=== PATIENT | female | born 1980 | race Caucasian/White ===

== ENCOUNTER 2021-12-31 08:58 | Inpatient (IN) | payer OTHER ==
[2021-12-28 14:55] LABS: Urine Bacteria FEW /hpf (None Seen); Urine Blood Negative /uL (Negative); Urine Specific Gravity 1.008 (1.001-1.035); Urine WBC 34 /hpf (0 - 5)
[2021-12-28 14:56] LABS: Basophils # (auto) 0.1 10 ^3/uL (0-0.2); Basophils % (auto) 1.3 % (0.0-2.0); Eosinophils # (auto) 0.1 10 ^3/uL (0-0.8); Hematocrit 39.3 % (36.0-46.0); Hemoglobin 13.3 g/dL (12.2-16.2); Lymphocytes # (auto) 1.6 10 ^3/uL (0.4-5.4); Lymphocytes % (auto) 24.1 % (10.0-50.0); Mean Corpuscular Hemoglobin 28.5 pg (28.0-32.0); Mean Corpuscular Hgb Conc. 33.7 g/dL (32.0-36.0); Mean Corpuscular Volume 84.5 fL (80.0-100.0); Monocytes # (auto) 0.4 10 ^3/uL (0-1.3); Monocytes % (auto) 5.8 % (0.0-12.0); Neutrophils # (auto) 4.4 10 ^3/uL (1.6-8.6); Neutrophils % (auto) 66.8 % (37.0-80.0); Nucleated Red Blood Cells % 0.1 %; Red Blood Cells 4.65 10^6/uL (4.0-5.20); Red Cell Distribution Width 13.5 % (11.8-14.3); White Blood Cell 6.6 10^3/uL (4.4-10.8)
[2021-12-28 15:19] LABS: INR 1.01 (0.9-1.15); Partial Thromboplastin Time 27.3 sec (23.6-33.0)
[2021-12-28 15:47] LABS: Albumin 3.7 g/dL (3.4-5.0); BUN/Creatinine Ratio 9.5; Calcium 8.9 mg/dL (8.5-10.1); Potassium 3.6 mmol/L (3.5-5.1)
[2021-12-28 15:50] LABS: Bilirubin, Total 0.4 mg/dL (0.2-1.0); Total Protein 7.1 g/dL (6.4-8.2)
[~2021-12-31] VITALS: Ht 167.6 cm; Wt 120.0 kg
[~2021-12-31 08:58] MED LIST: LEVO25TA6 PO; PANT40TA2 PO; PROG1CAP2 PO; VITA1CAP15 PO
[2021-12-31] MEDS ORDERED: ceFAZolin 1GM/50ML 100 ML IV ONE (09:13)
[2021-12-31] MEDS ORDERED: GLYCOPYRROLATE 0.2 MG/ML 1ML VIAL ONE (09:52)
[2021-12-31] MEDS ORDERED: ONDANSETRON HCL 4 MG/2 ML VIAL ONE (09:52)
[2021-12-31] MEDS ORDERED: ROCURONIUM 10MG/ML 10ML VIAL IV ONE ×2 (09:52→14:32)
[2021-12-31] MEDS ORDERED: HYDROmorphone HCL 2 MG/ML VL/or syr ONE (09:52)
[2021-12-31] MEDS ORDERED: SODIUM CHLORIDE LOCK 10 ML ONE (09:52)
[2021-12-31] MEDS ORDERED: MIDAZOLAM HCL 2MG/2ML 2ml VIAL (1mg/ml) ONE (09:52)
[2021-12-31] MEDS ORDERED: NEOSTIGMINE 1 MG/ML INJ (10mg/10ML VIAL) ONE (09:52)
[2021-12-31] MEDS ORDERED: fentaNYL CITRATE 100 MCG/2 ML VL ONE ×2 (09:52→14:22)
[2021-12-31] MEDS ORDERED: DexAMETHasone SOD PHOS 10MG/1ML VIAL INJ ONE (09:52)
[2021-12-31] MEDS ORDERED: MORPHINE SULFATE 4 MG/ML SYR/VIAL IV PRN (11:45)
[2021-12-31] MEDS ORDERED: HYDROmorphone HCL 2 MG/ML VL/or syr IV PRN ×4 (11:45→19:15)
[2021-12-31] MEDS ORDERED: fentaNYL CITRATE 100 MCG/2 ML VL IV PRN (11:45)
[2021-12-31] MEDS ORDERED: METOCLOPRAMIDE HCL 5MG/ml INJ 2ml VIAL IV PRN (11:45)
[2021-12-31] MEDS ORDERED: ONDANSETRON HCL 4 MG/2 ML VIAL IV PRN (12:15)
[2021-12-31] MEDS ORDERED: NITROGLYCERIN 0.4 MG SL TAB SL PRN (12:15)
[2021-12-31] MEDS ORDERED: ceFAZolin 1GM/50ML 50 ML IV ONE (12:15)
[2021-12-31] MEDS ORDERED: MORPHINE SULFATE INJ 2 MG/ml SYRG IV PRN (12:15)
[2021-12-31] MEDS ORDERED: LIDOCAINE 1%-Mpf/Epinephrine 1:200,000 ONE (12:22)
[2021-12-31] MEDS ORDERED: BUPIVACAINE 0.25% INJ 50ML VIAL ONE (12:22)
[2021-12-31] MEDS ORDERED: METHYLENE BLUE 0.5% 5MG/ML 10ml AMP IV ONE (12:22)
[2021-12-31] MEDS ORDERED: SUCCINYLCHOLINE CHLORIDE 20 MG/ML 10ML VIAL IV ONE (12:59)
[2021-12-31] MEDS: SODIUM CHLORIDE 0.9% 1,000 ML IV SCH ×2 (15:25→20:15)
[2021-12-31] MEDS ORDERED: MEPERIDINE HCL (50 MG/ML) 1 ML VIAL ONE (15:31)
[2021-12-31] MEDS: MEPERIDINE HCL (25 MG/ML) 1ML VIAL IV PRN ×2 (15:32→15:47)
[2021-12-31] MEDS ORDERED: medroxyPROGESTERone ACETATE 5 MG TAB PO SCH (18:00)
[2021-12-31] MEDS ORDERED: oxyCODONE HCL 5MG TAB PO PRN (19:15)
[2021-12-31] MEDS ORDERED: traMADol HCL 50 MG TAB PO PRN (20:00)
[2021-12-31] MEDS: ACETAMINOPHEN 500 MG TAB PO PRN (20:15)
[2021-12-31 21:59] VITALS: BP 124/96
[2022-01-01] MEDS: ACETAMINOPHEN 500 MG TAB PO PRN ×2 (03:21→08:56)
[2022-01-01] MEDS: SODIUM CHLORIDE 0.9% 1,000 ML IV SCH ×2 (03:24→12:15)
[2022-01-01 05:01] VITALS: BP 138/83
[2022-01-01] MEDS ORDERED: LEVOTHYROXINE SODIUM 50 MCG TAB PO SCH (07:00)
[2022-01-01 08:52] VITALS: BP 121/73
[2022-01-01] MEDS ORDERED: FAMOTIDINE 20 MG TAB PO SCH (10:00)
[2022-01-01] MEDS ORDERED: IBUPROFEN 800 MG TAB PO PRN (12:00)
[2022-01-01 12:35] VITALS: BP 121/73
[2022-01-01] MEDS ORDERED: IBUPROFEN 800 MG TAB PO SCH (22:00)
== END 2022-01-01 13:00 | disposition home or self-care (01) | DRG 743 ==
LOC: SUR 08:58 → OVERFLOW 12:25 → WEST WING 16:37
PROVIDERS: ADMIT Obstetrics & Gynecology; ATTEND Obstetrics & Gynecology
PROC: 0UT74ZZ Resection of Bilateral Fallopian Tubes, Percutaneous Endoscopic Approach (ICD-10-PCS; 2021-12-31)
PROC: 0UT24ZZ Resection of Bilateral Ovaries, Percutaneous Endoscopic Approach (ICD-10-PCS; 2021-12-31)
PROC: 0USG4ZZ Reposition Vagina, Percutaneous Endoscopic Approach (ICD-10-PCS; 2021-12-31)
PROC: 8E0W4CZ Robotic Assisted Procedure of Trunk Region, Percutaneous Endoscopic Approach (ICD-10-PCS; 2021-12-31)
PROC: 0UT94ZZ Resection of Uterus, Percutaneous Endoscopic Approach (ICD-10-PCS; principal; 2021-12-31 12:47)
DX: D25.0 Submucous leiomyoma of uterus (principal); N92.5 Other specified irregular menstruation; N81.89 Other female genital prolapse; E66.01 Morbid (severe) obesity due to excess calories; K21.9 Gastro-esophageal reflux disease without esophagitis; I10 Essential (primary) hypertension; Z20.822 Contact with and (suspected) exposure to COVID-19; Z68.38 Body mass index [BMI] 38.0-38.9, adult
CPT/HCPCS: 36415; 80053; 81001; 81025; 84702; 85025; 85610; 85730; 86850; 86900; 86901; 87086; G0378; J0330; J0690; J1100; J2250; J2405; J3490